=== PATIENT | male | born 1940 | race Caucasian/White ===

== ENCOUNTER 2021-07-02 13:13 | Emergency (ER) | payer OTHER, MEDICARE, SELFPAY ==
[2021-07-02 14:29] VITALS: BP 130/77; PULSE 55; RESP 18; TEMP 36.8; O2SAT 96; BMI 28.3
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
== END 2021-07-02 17:18 | disposition home or self-care (01) ==
PROVIDERS: Emergency Provider Physician Assistant
DX: S29.012A Strain of muscle and tendon of back wall of thorax, initial encounter (principal); V43.62XA Car passenger injured in collision with other type car in traffic accident, initial encounter; Y92.410 Unspecified street and highway as the place of occurrence of the external cause
CPT/HCPCS: 72128; 99282